=== PATIENT | male | born 1945 | race Hispanic/Latino ===

== ENCOUNTER 2020-10-23 18:58 | Emergency (ER) | payer OTHER ==
[2020-10-23 20:00] LABS: BASOPHILS % (AUTO) 0.5 % (0.0-5.0); EOSINOPHILS % (AUTO) 0.8 % (0.0-8.0); HEMATOCRIT 46.6 % (42-54); LYMPHOCYTES % (AUTO) 19.9 % (21.0-51.0); MEAN CORPUSCULAR HEMOGLOBIN 30.9 pg (27.0-33.0); MEAN CORPUSCULAR HGB CONC 35.8 g/dL (32.0-36.0); MEAN CORPUSCULAR VOLUME 86.1 fL (79-99); NEUTROPHILS % (AUTO) 71.3 % (40.0-77.0); PLATELET COUNT (AUTO) 200 K/uL (130-400); RED BLOOD CELL COUNT(AUTO) 5.41 MIL/uL (4.50-6.20); RED CELL DISTRIBUTION WIDTH 12.2 % (11.0-15.5); WHITE BLOOD COUNT (AUTO) 12.7 K/uL (4.8-10.8)
[2020-10-23 20:14] LABS: CREATININE 1.2 mg/dL (0.5-1.5); POTASSIUM 3.8 mmol/L (3.5-5.1)
[2020-10-23 20:16] LABS: PROTHROMBIN TIME 10.9 SEC (9.6-11.6)
[2020-10-23 20:20] LABS: BILIRUBIN,TOTAL 0.8 mg/dL (0.2-1.0); TOTAL PROTEIN, SERUM 7.2 g/dL (6.0-8.3)
[2020-10-23 20:35] LABS: APPEARANCE,URINE Clear (CLEAR); BILIRUBIN,URINE Negative (NEGATIVE); COLOR,URINE Yellow (YELLOW); GLUCOSE, URINE (UA) >=1000 mg/dL (NEGATIVE); KETONES,URINE Negative (NEGATIVE); LEUKOCYTE ESTERASE ,URINE Small (NEGATIVE); NITRATE,URINE Negative (NEGATIVE); OCCULT BLOOD,URINE Negative (NEGATIVE); PROTEIN,URINE POS 1+ mg/dL (NEGATIVE); UROBILINOGEN,URINE 0.2 mg/dL (0.2-1.0)
[2020-10-23 20:44] LABS: MUCUS,URINE Rare LPF (None Seen)
[2020-10-23] MEDS ORDERED: IOHEXOL-350 75 ML VIAL IV ONE (20:46)
[2020-10-23 20:47] LABS: BACTERIA,URINE Few /HPF (None Seen); RBC,URINE 0-1 /HPF (0-1); YEAST,URINE BUDDING Few /HPF (None Seen)
[2020-10-23] MEDS ORDERED: BISACODYL 10 MG SUPP.RECT RC ONE (22:15)
[2020-10-23] MEDS ORDERED: LIDOCAINE HCL 2% VISCOUS 15 ML UDCUP ONE (23:35)
[2020-10-23] MEDS ORDERED: LACTULOSE 20 GM/30 ML UDCUP ONE (23:35)
== END 2020-10-24 00:30 | disposition home or self-care (01) ==
LOC: EDH 18:58
DX: K56.41 Fecal impaction (principal); E86.0 Dehydration; I10 Essential (primary) hypertension; E11.9 Type 2 diabetes mellitus without complications; Z90.49 Acquired absence of other specified parts of digestive tract
CPT/HCPCS: 36415; 71045; 74177; 80053; 81001; 83605; 83690; 83880; 84484; 85025; 85610; 85730; 87040 ×2; 93005; 99285; Q9967

== ENCOUNTER 2020-12-13 11:53 | Emergency (ER) | payer MEDICARE, OTHER ==
[2020-12-13] MEDS ORDERED: NIFEDIPINE 10 MG CAP ONE (12:16)
[2020-12-13] MEDS ORDERED: LACTULOSE 20 GM/30 ML UDCUP ONE (12:20)
[2020-12-13 12:22] LABS: BASOPHILS % (AUTO) 0.4 % (0.0-5.0); EOSINOPHILS % (AUTO) 1.4 % (0.0-8.0); HEMATOCRIT 48.6 % (42-54); LYMPHOCYTES % (AUTO) 23.6 % (21.0-51.0); MEAN CORPUSCULAR HGB CONC 35.4 g/dL (32.0-36.0); MEAN CORPUSCULAR VOLUME 87.7 fL (79-99); MONOCYTES % (AUTO) 7.1 % (3.0-13.0); NEUTROPHILS % (AUTO) 66.8 % (40.0-77.0); PLATELET COUNT (AUTO) 185 K/uL (130-400); RED BLOOD CELL COUNT(AUTO) 5.54 MIL/uL (4.50-6.20); RED CELL DISTRIBUTION WIDTH 11.9 % (11.0-15.5); WHITE BLOOD COUNT (AUTO) 8.3 K/uL (4.8-10.8)
[2020-12-13 12:26] LABS: APPEARANCE,URINE Clear (CLEAR); BILIRUBIN,URINE Negative (NEGATIVE); COLOR,URINE Yellow (YELLOW); GLUCOSE, URINE (UA) >=1000 mg/dL (NEGATIVE); KETONES,URINE Negative (NEGATIVE); LEUKOCYTE ESTERASE ,URINE Negative (NEGATIVE); NITRATE,URINE Negative (NEGATIVE); OCCULT BLOOD,URINE Negative (NEGATIVE); PROTEIN,URINE Negative (NEGATIVE)
[2020-12-13 12:37] LABS: BILIRUBIN,TOTAL 0.6 mg/dL (0.2-1.0); CREATININE 1.2 mg/dL (0.5-1.5); POTASSIUM 4.5 mmol/L (3.5-5.1); TOTAL PROTEIN, SERUM 7.1 g/dL (6.0-8.3)
[2020-12-13 12:42] LABS: BACTERIA,URINE Rare /HPF (None Seen); RBC,URINE 0-1 /HPF (0-1); SQUAMOUS EPITHELIAL CELL,UR Rare /HPF (0-2); WBC,URINE 0-1 /HPF (0-1)
[2020-12-13] MEDS ORDERED: SODIUM CHLORIDE 0.9% 1000ML 1,000 ML IV ONE (12:45)
[2020-12-13] MEDS ORDERED: INSULIN HUMULIN R 100 UNIT/ML 3ML ONE ×2 (12:46→14:05)
[2020-12-13 13:01] LABS: B-TYPE NATRIURETIC PEPTIDE 69 pg/mL (0-100)
== END 2020-12-13 14:52 | disposition home or self-care (01) ==
LOC: EDH 11:53
DX: K59.00 Constipation, unspecified (principal); E11.65 Type 2 diabetes mellitus with hyperglycemia; I10 Essential (primary) hypertension; Z90.49 Acquired absence of other specified parts of digestive tract
CPT/HCPCS: 36415; 71045; 74176; 80053; 81001; 82010; 82550; 82948 ×2; 83690; 83880; 84484; 85025; 93005; 96361; 96374; 96376; 99285; J1815 ×2; J7030; 96375

== ENCOUNTER 2021-02-04 14:13 | Emergency (ER) | payer MEDICARE ==
[~2021-02-04] VITALS: Ht 170.2 cm; Wt 81.6 kg
[2021-02-04 14:14] VITALS: BP 193/112
[2021-02-04] MEDS ORDERED: MAGNESIUM CITRATE 296 ML SOLUTION PO ONE (15:00)
[2021-02-04] MEDS ORDERED: LACTULOSE 20 GM/30 ML UDCUP PO ONE (15:00)
[2021-02-04 16:03] LABS: HEMATOCRIT 48.9 % (42-54); MEAN CORPUSCULAR HEMOGLOBIN 30.6 pg (27.0-33.0); MEAN CORPUSCULAR HGB CONC 34.8 g/dL (32.0-36.0); MEAN CORPUSCULAR VOLUME 88.1 fL (79-99); RED BLOOD CELL COUNT(AUTO) 5.55 MIL/uL (4.50-6.20); RED CELL DISTRIBUTION WIDTH 12.4 % (11.0-15.5); WHITE BLOOD COUNT (AUTO) 8.9 K/uL (4.8-10.8)
[2021-02-04] MEDS ORDERED: LACT10PA5 PO (16:09)
[2021-02-04 16:14] LABS: CREATININE 1.1 mg/dL (0.5-1.5); POTASSIUM 4.3 mmol/L (3.5-5.1)
[2021-02-04 16:18] LABS: ALBUMIN 4.1 g/dL (3.5-5.0); TOTAL PROTEIN, SERUM 7.5 g/dL (6.0-8.3)
== END 2021-02-04 16:29 | disposition home or self-care (01) ==
LOC: EDH 14:13
DX: K59.00 Constipation, unspecified (principal); I10 Essential (primary) hypertension; E11.9 Type 2 diabetes mellitus without complications; Z90.49 Acquired absence of other specified parts of digestive tract
CPT/HCPCS: 36415; 74018; 80053; 85027

== ENCOUNTER 2021-06-09 11:59 | Inpatient (IN) | payer MEDICARE ==
[~2021-06-09] VITALS: Ht 170.2 cm; Wt 77.2 kg
[~2021-06-09 11:59] MED LIST: LACT10PA5 PO
[2021-06-09 12:29] LABS: BASOPHILS % (AUTO) 0.2 % (0.0-5.0); EOSINOPHILS % (AUTO) 0.3 % (0.0-8.0); HEMATOCRIT 46.4 % (42-54); LYMPHOCYTES % (AUTO) 12.1 % (21.0-51.0); MEAN CORPUSCULAR HEMOGLOBIN 31.2 pg (27.0-33.0); MEAN CORPUSCULAR HGB CONC 34.7 g/dL (32.0-36.0); MEAN CORPUSCULAR VOLUME 89.9 fL (79-99); NEUTROPHILS % (AUTO) 78.1 % (40.0-77.0); PLATELET COUNT (AUTO) 221 K/uL (130-400); RED BLOOD CELL COUNT(AUTO) 5.16 MIL/uL (4.50-6.20); RED CELL DISTRIBUTION WIDTH 12.7 % (11.0-15.5); WHITE BLOOD COUNT (AUTO) 11.6 K/uL (4.8-10.8)
[2021-06-09] MEDS ORDERED: COMPOUND IV REFRIGERATED 1 EACH IVSOLN MISC PRN (12:30)
[2021-06-09] MEDS ORDERED: 0.9% NACL 250ML IV SCH (12:30)
[2021-06-09] MEDS ORDERED: ZOSYN 3.375GM +NS 50ML IV SCH (12:30)
[2021-06-09] MEDS ORDERED: ZOSYN 3.375GM+NS 50ML 50 ML IV SCH (12:30)
[2021-06-09] MEDS ORDERED: VANCOMYCIN 1G VIAL IVPB SCH (12:30)
[2021-06-09] MEDS ORDERED: HYDROCODONE/ACETAMINOPHEN 10/325 MG TAB PO ONE (12:30)
[2021-06-09] MEDS ORDERED: 0.9%NACL 50ML 50 ML IV ONE (12:34)
[2021-06-09 12:37] LABS: CREATININE 1.4 mg/dL (0.5-1.5); POTASSIUM 3.9 mmol/L (3.5-5.1)
[2021-06-09 12:42] LABS: ALBUMIN 3.4 g/dL (3.5-5.0); BILIRUBIN,TOTAL 0.9 mg/dL (0.2-1.0); TOTAL PROTEIN, SERUM 7.8 g/dL (6.0-8.3)
[2021-06-09] MEDS ORDERED: ONDANSETRON 4MG INJ ONE (12:46)
[2021-06-09] MEDS ORDERED: VANCOMYCIN 1G/250ML KIT 250 ML IV ONE (12:47)
[2021-06-09] MEDS ORDERED: ONDANSETRON 4MG INJ IVP ONE (13:00)
[2021-06-09] MEDS ORDERED: ONDANSETRON 4MG INJ IV PRN (13:30)
[2021-06-09] MEDS ORDERED: ACETAMINOPHEN 325 MG TAB PO PRN ×2 (13:30)
[2021-06-09] MEDS ORDERED: MORPHINE 2 MG SYG IV PRN (13:30)
[2021-06-09] MEDS ORDERED: LACTULOSE 20 GM/30 ML UDCUP PO PRN (13:30)
[2021-06-09] MEDS: VANCOMYCIN 1.25GM/NS 250ML IVPB SCH ×4 (13:35→16:14)
[2021-06-09 13:44] LABS: INR 1.07 (0.85-1.15); PROTHROMBIN TIME 11.6 SEC (9.6-11.6)
[2021-06-09 13:46] LABS: PARTIAL THROMBOPLASTIN TIME 35.1 SEC (26.3-35.5)
[2021-06-09 13:49] LABS: HEMOGLOBIN A1C 6.7 % (4.0-6.0)
[2021-06-09] MEDS: CEFEPIME HCL 2 GM VIAL IVP SCH (15:07)
[2021-06-09] MEDS: 0.9%NACL 1000ML 1,000 ML IV SCH (15:07)
[2021-06-09] MEDS: FAMOTIDINE 20MG VIAL IV SCH (15:07)
[2021-06-09] MEDS: METRONIDAZOLE 500MG/100ML BAG 100 ML IVPB SCH ×2 (16:34→22:00)
[2021-06-09] MEDS ORDERED: ASPIRIN 81 MG EC TAB PO ONE (17:00)
[2021-06-09] MEDS: INSULIN HUMULIN R 100 UNIT/ML 3ML SQ SCH (17:38)
[2021-06-09] MEDS ORDERED: RAMI5CAP66 PO (17:43)
[2021-06-09] MEDS ORDERED: EMPA10TA PO (17:53)
[2021-06-09] MEDS ORDERED: LISI20TA24 PO (17:53)
[2021-06-09] MEDS ORDERED: DULA0.75 SQ (17:53)
[2021-06-09] MEDS ORDERED: DORZ10DR10 OP (17:53)
[2021-06-09] MEDS ORDERED: LATA7.5D OP (17:53)
[2021-06-09] MEDS ORDERED: [UNRECOGNIZED DRUG - OTHER] OP (17:53)
[2021-06-09] MEDS: ATORVASTATIN 20 MG TABLET PO SCH (21:00)
[2021-06-09 21:25] VITALS: BP 156/84
[2021-06-09] MEDS ORDERED: PHARMACY COMMUNICATION MISC SCH (22:00)
[2021-06-09 22:14] LABS: APPEARANCE,URINE Clear (CLEAR); BILIRUBIN,URINE Negative (NEGATIVE); COLOR,URINE Yellow (YELLOW); GLUCOSE, URINE (UA) >=1000 mg/dL (NEGATIVE); KETONES,URINE 15 mg/dL (NEGATIVE); LEUKOCYTE ESTERASE ,URINE Negative (NEGATIVE); NITRATE,URINE Negative (NEGATIVE); OCCULT BLOOD,URINE Negative (NEGATIVE); PROTEIN,URINE Negative (NEGATIVE)
[2021-06-10 00:02] VITALS: BP 147/90
[2021-06-10] MEDS: CEFEPIME HCL 2 GM VIAL IVP SCH ×2 (02:26→12:49)
[2021-06-10] MEDS: 0.9%NACL 1000ML 1,000 ML IV SCH ×3 (02:33→20:52)
[2021-06-10 04:10] VITALS: BP 159/92
[2021-06-10 04:26] LABS: BASOPHILS % (AUTO) 0.3 % (0.0-5.0); HEMATOCRIT 38.7 % (42-54); LYMPHOCYTES % (AUTO) 16.4 % (21.0-51.0); MEAN CORPUSCULAR HEMOGLOBIN 31.2 pg (27.0-33.0); MEAN CORPUSCULAR HGB CONC 35.1 g/dL (32.0-36.0); MEAN CORPUSCULAR VOLUME 88.8 fL (79-99); NEUTROPHILS % (AUTO) 70.9 % (40.0-77.0); PLATELET COUNT (AUTO) 193 K/uL (130-400); RED BLOOD CELL COUNT(AUTO) 4.36 MIL/uL (4.50-6.20); RED CELL DISTRIBUTION WIDTH 12.6 % (11.0-15.5)
[2021-06-10 04:40] LABS: CREATININE 1.2 mg/dL (0.5-1.5); POTASSIUM 3.5 mmol/L (3.5-5.1)
[2021-06-10] MEDS: METRONIDAZOLE 500MG/100ML BAG 100 ML IVPB SCH ×3 (06:00→21:11)
[2021-06-10] MEDS: INSULIN HUMULIN R 100 UNIT/ML 3ML SQ SCH ×4 (06:00→16:25)
[2021-06-10] MEDS ORDERED: IOHEXOL-350 50ML VIAL IV ONE (07:54)
[2021-06-10] MEDS ORDERED: IOHEXOL 350 MG/ML 100ML INFUS..BTL IV ONE (07:55)
[2021-06-10 08:00] VITALS: BP 176/94
[2021-06-10] MEDS: [UNRECOGNIZED DRUG - OTHER] OP SCH ×3 (09:00→21:00)
[2021-06-10] MEDS: **HM** JARDIANCE 10MG PO SCH (09:00)
[2021-06-10] MEDS ORDERED: NON-FORMULARY MEDICATION 1 EACH (Ramipril 5 MG) PO SCH (09:00)
[2021-06-10] MEDS: FAMOTIDINE 20MG VIAL IV SCH (10:10)
[2021-06-10] MEDS: LISINOPRIL 20 MG TABLET PO SCH (10:12)
[2021-06-10] MEDS: ASPIRIN 81 MG EC TAB PO SCH (10:43)
[2021-06-10 12:00] VITALS: BP 153/86
[2021-06-10] MEDS: DORZOLAMIDE HCL/TIMOLOL MALEAT DROPS 10 ML BOTTLE OP SCH ×2 (14:00→21:00)
[2021-06-10] MEDS ORDERED: METRONIDAZOLE 500 MG TABLET ONE ×2 (14:56→20:36)
[2021-06-10] MEDS: VANCOMYCIN 1.25GM/NS 250ML IVPB SCH ×2 (15:04)
[2021-06-10 16:00] VITALS: BP 144/84
[2021-06-10 20:00] VITALS: BP 150/92
[2021-06-10] MEDS: ATORVASTATIN 20 MG TABLET PO SCH (21:06)
[2021-06-10] MEDS: LATANOPROST 2.5 ML DROPS OP SCH (21:08)
[2021-06-11] VITALS: BP 139/77
[2021-06-11] MEDS: CEFEPIME HCL 2 GM VIAL IVP SCH ×2 (01:06→12:42)
[2021-06-11] MEDS: VANCOMYCIN 1.25GM/NS 250ML IVPB SCH ×4 (01:07→12:50)
[2021-06-11 04:00] VITALS: BP 160/98
[2021-06-11 04:42] LABS: HEMATOCRIT 39.3 % (42-54); MEAN CORPUSCULAR HEMOGLOBIN 30.5 pg (27.0-33.0); MEAN CORPUSCULAR HGB CONC 35.1 g/dL (32.0-36.0); MEAN CORPUSCULAR VOLUME 86.9 fL (79-99); RED BLOOD CELL COUNT(AUTO) 4.52 MIL/uL (4.50-6.20); RED CELL DISTRIBUTION WIDTH 12.3 % (11.0-15.5); WHITE BLOOD COUNT (AUTO) 7.7 K/uL (4.8-10.8)
[2021-06-11 05:09] LABS: ALBUMIN 2.4 g/dL (3.5-5.0); BILIRUBIN,TOTAL 0.5 mg/dL (0.2-1.0); POTASSIUM 3.7 mmol/L (3.5-5.1); TOTAL PROTEIN, SERUM 5.9 g/dL (6.0-8.3)
[2021-06-11] MEDS: METRONIDAZOLE 500MG/100ML BAG 100 ML IVPB SCH ×3 (05:27→21:05)
[2021-06-11] MEDS: 0.9%NACL 1000ML 1,000 ML IV SCH ×2 (05:36→16:52)
[2021-06-11] MEDS: INSULIN HUMULIN R 100 UNIT/ML 3ML SQ SCH ×4 (06:00→16:49)
[2021-06-11 08:00] VITALS: BP 117/76
[2021-06-11] MEDS: [UNRECOGNIZED DRUG - OTHER] OP SCH ×3 (08:42→21:00)
[2021-06-11] MEDS: **HM** JARDIANCE 10MG PO SCH (08:43)
[2021-06-11 12:00] VITALS: BP 149/86
[2021-06-11] MEDS: LISINOPRIL 20 MG TABLET PO SCH (12:42)
[2021-06-11] MEDS: FAMOTIDINE 20MG VIAL IV SCH (12:46)
[2021-06-11] MEDS: DORZOLAMIDE HCL/TIMOLOL MALEAT DROPS 10 ML BOTTLE OP SCH ×2 (12:49→21:00)
[2021-06-11 16:00] VITALS: BP 142/84
[2021-06-11] MEDS: AMLODIPINE 5 MG TAB PO SCH (16:56)
[2021-06-11] MEDS: ASPIRIN 81 MG EC TAB PO SCH (16:56)
[2021-06-11 20:26] VITALS: BP 156/96
[2021-06-11] MEDS: LATANOPROST 2.5 ML DROPS OP SCH (21:03)
[2021-06-11] MEDS: ATORVASTATIN 20 MG TABLET PO SCH (21:04)
[2021-06-12] VITALS (7 sets, daily range): BP systolic 121–156; BP diastolic 67–92
[2021-06-12 00:53] LABS: MEAN CORPUSCULAR HEMOGLOBIN 31.6 pg (27.0-33.0); MEAN CORPUSCULAR VOLUME 87.6 fL (79-99); RED BLOOD CELL COUNT(AUTO) 4.91 MIL/uL (4.50-6.20); RED CELL DISTRIBUTION WIDTH 12.3 % (11.0-15.5); WHITE BLOOD COUNT (AUTO) 7.1 K/uL (4.8-10.8)
[2021-06-12 01:00] LABS: POTASSIUM 3.5 mmol/L (3.5-5.1)
[2021-06-12] MEDS: VANCOMYCIN 1.25GM/NS 250ML IVPB SCH ×4 (01:33→12:47)
[2021-06-12] MEDS: CEFEPIME HCL 2 GM VIAL IVP SCH ×2 (01:33→12:45)
[2021-06-12] MEDS: 0.9%NACL 1000ML 1,000 ML IV SCH ×2 (02:52→12:21)
[2021-06-12] MEDS: METRONIDAZOLE 500MG/100ML BAG 100 ML IVPB SCH ×3 (05:41→19:23)
[2021-06-12] MEDS: INSULIN HUMULIN R 100 UNIT/ML 3ML SQ SCH ×4 (05:41→16:08)
[2021-06-12] MEDS: [UNRECOGNIZED DRUG - OTHER] OP SCH ×3 (09:00→20:31)
[2021-06-12] MEDS: FAMOTIDINE 20MG VIAL IV SCH (09:01)
[2021-06-12] MEDS: ASPIRIN 81 MG EC TAB PO SCH (09:02)
[2021-06-12] MEDS: LISINOPRIL 20 MG TABLET PO SCH (09:02)
[2021-06-12] MEDS: AMLODIPINE 5 MG TAB PO SCH (09:02)
[2021-06-12] MEDS: HYDROCHLOROTHIAZIDE 25 MG TABLET PO SCH (09:02)
[2021-06-12] MEDS: **HM** JARDIANCE 10MG PO SCH (09:13)
[2021-06-12] MEDS: DORZOLAMIDE HCL/TIMOLOL MALEAT DROPS 10 ML BOTTLE OP SCH ×3 (09:13→20:31)
[2021-06-12] MEDS: ATORVASTATIN 20 MG TABLET PO SCH (20:24)
[2021-06-12] MEDS: LATANOPROST 2.5 ML DROPS OP SCH (20:30)
[2021-06-13] VITALS (23 sets, daily range): BP systolic 114–178; BP diastolic 74–102
[2021-06-13] MEDS: CEFEPIME HCL 2 GM VIAL IVP SCH ×2 (00:27→13:09)
[2021-06-13] MEDS: VANCOMYCIN 1.25GM/NS 250ML IVPB SCH ×4 (00:27→13:15)
[2021-06-13 05:46] LABS: BASOPHILS % (AUTO) 0.8 % (0.0-5.0); EOSINOPHILS % (AUTO) 1.8 % (0.0-8.0); LYMPHOCYTES % (AUTO) 20.7 % (21.0-51.0); MEAN CORPUSCULAR HGB CONC 35.7 g/dL (32.0-36.0); MONOCYTES % (AUTO) 10.1 % (3.0-13.0); PLATELET COUNT (AUTO) 258 K/uL (130-400); RED BLOOD CELL COUNT(AUTO) 5.06 MIL/uL (4.50-6.20); RED CELL DISTRIBUTION WIDTH 12.2 % (11.0-15.5); WHITE BLOOD COUNT (AUTO) 7.2 K/uL (4.8-10.8)
[2021-06-13] MEDS: METRONIDAZOLE 500MG/100ML BAG 100 ML IVPB SCH ×3 (06:00→20:08)
[2021-06-13] MEDS: INSULIN HUMULIN R 100 UNIT/ML 3ML SQ SCH ×5 (06:00→23:56)
[2021-06-13 06:24] LABS: ALBUMIN 2.9 g/dL (3.5-5.0); BILIRUBIN,TOTAL 0.5 mg/dL (0.2-1.0); CRP QUANTITATIVE 55.4 mg/L (0.00-9.0); POTASSIUM 3.8 mmol/L (3.5-5.1); TOTAL PROTEIN, SERUM 6.8 g/dL (6.0-8.3)
[2021-06-13 07:28] LABS: ERYTHROCYTE SEDIMENTATION RATE 40 MM/HR (0-20)
[2021-06-13] MEDS: LISINOPRIL 20 MG TABLET PO SCH (08:32)
[2021-06-13] MEDS: AMLODIPINE 5 MG TAB PO SCH (08:32)
[2021-06-13] MEDS: FAMOTIDINE 20MG VIAL IV SCH (08:32)
[2021-06-13] MEDS: HYDROCHLOROTHIAZIDE 25 MG TABLET PO SCH (08:32)
[2021-06-13] MEDS: ASPIRIN 81 MG EC TAB PO SCH (08:33)
[2021-06-13] MEDS: **HM** JARDIANCE 10MG PO SCH (08:37)
[2021-06-13] MEDS: [UNRECOGNIZED DRUG - OTHER] OP SCH ×3 (08:42→20:08)
[2021-06-13] MEDS: DORZOLAMIDE HCL/TIMOLOL MALEAT DROPS 10 ML BOTTLE OP SCH ×3 (08:43→20:09)
[2021-06-13] MEDS ORDERED: LABETALOL 20MG SYG IV PRN (10:00)
[2021-06-13] MEDS ORDERED: 0.9%NACL 1000ML 1,000 ML IV ONE (12:59)
[2021-06-13] MEDS ORDERED: BUPIVACAINE/PF 0.5% 30ML VIAL ONE (13:08)
[2021-06-13] MEDS ORDERED: LIDOCAINE HCL 1% 20 ML VIAL ONE (13:08)
[2021-06-13] MEDS ORDERED: FENTANYL CITRATE PF 50 MCG/1 ML 2ML VIAL ONE (13:43)
[2021-06-13] MEDS ORDERED: DEXAMETHASONE SOD PHOSPHATE 10MG/ML 1ML VIAL ONE (13:43)
[2021-06-13] MEDS ORDERED: ONDANSETRON 4MG INJ ONE (13:43)
[2021-06-13] MEDS ORDERED: MIDAZOLAM HCL 1 MG/ML 2ML VIAL ONE (13:43)
[2021-06-13] MEDS ORDERED: LIDOCAINE PF 100MG/5ML (2%) SYRINGE 5ML ONE (13:43)
[2021-06-13] MEDS ORDERED: PROPOFOL 10 MG/ML 20ML VIAL IV ONE (13:43)
[2021-06-13] MEDS ORDERED: MEPERIDINE-PF 25 MG/ML SYG ONE (13:44)
[2021-06-13] MEDS ORDERED: EPHEDRINE SULFATE 50 MG/ML AMPULE ONE (13:53)
[2021-06-13] MEDS: ATORVASTATIN 20 MG TABLET PO SCH (20:08)
[2021-06-13] MEDS: LATANOPROST 2.5 ML DROPS OP SCH (20:09)
[2021-06-14] MEDS: CEFEPIME HCL 2 GM VIAL IVP SCH ×2 (01:33→12:44)
[2021-06-14] MEDS: VANCOMYCIN 1.25GM/NS 250ML IVPB SCH ×4 (01:34→13:00)
[2021-06-14 03:13] VITALS: BP 144/80
[2021-06-14] MEDS: METRONIDAZOLE 500MG/100ML BAG 100 ML IVPB SCH (04:45)
[2021-06-14 04:52] LABS: BASOPHILS % (AUTO) 0.1 % (0.0-5.0); HEMATOCRIT 44.3 % (42-54); LYMPHOCYTES % (AUTO) 10.5 % (21.0-51.0); MEAN CORPUSCULAR HGB CONC 35.4 g/dL (32.0-36.0); MEAN CORPUSCULAR VOLUME 87.5 fL (79-99); MONOCYTES % (AUTO) 3.3 % (3.0-13.0); NEUTROPHILS % (AUTO) 84.3 % (40.0-77.0); PLATELET COUNT (AUTO) 280 K/uL (130-400); RED BLOOD CELL COUNT(AUTO) 5.06 MIL/uL (4.50-6.20); RED CELL DISTRIBUTION WIDTH 12.1 % (11.0-15.5)
[2021-06-14 05:11] LABS: ALBUMIN 2.9 g/dL (3.5-5.0); BILIRUBIN,TOTAL 0.5 mg/dL (0.2-1.0); CREATININE 1.2 mg/dL (0.5-1.5); TOTAL PROTEIN, SERUM 6.8 g/dL (6.0-8.3)
[2021-06-14] MEDS: INSULIN HUMULIN R 100 UNIT/ML 3ML SQ SCH ×3 (05:39→18:00)
[2021-06-14 08:00] VITALS: BP 129/87
[2021-06-14] MEDS: [UNRECOGNIZED DRUG - OTHER] OP SCH ×3 (09:00→20:57)
[2021-06-14] MEDS: **HM** JARDIANCE 10MG PO SCH (09:00)
[2021-06-14] MEDS: DORZOLAMIDE HCL/TIMOLOL MALEAT DROPS 10 ML BOTTLE OP SCH ×3 (09:00→20:57)
[2021-06-14] MEDS: FAMOTIDINE 20MG VIAL IV SCH (09:18)
[2021-06-14] MEDS: HYDROCHLOROTHIAZIDE 25 MG TABLET PO SCH (09:18)
[2021-06-14] MEDS: AMLODIPINE 5 MG TAB PO SCH (09:19)
[2021-06-14] MEDS: CLOPIDOGREL 75MG TAB PO SCH (09:19)
[2021-06-14] MEDS: ASPIRIN 81 MG EC TAB PO SCH (09:19)
[2021-06-14] MEDS: LISINOPRIL 20 MG TABLET PO SCH (09:19)
[2021-06-14] MEDS ORDERED: ATOR10 PO (10:22)
[2021-06-14] MEDS ORDERED: CLOP75TA14 PO (10:22)
[2021-06-14 12:00] VITALS: BP 113/81
[2021-06-14] MEDS ORDERED: LACTULOSE 20 GM/30 ML UDCUP PO PRN (12:00)
[2021-06-14 16:00] VITALS: BP 138/83
[2021-06-14] MEDS: METRONIDAZOLE 500 MG TABLET PO SCH (17:45)
[2021-06-14] MEDS: LACTULOSE 20 GM/30 ML UDCUP PO PRN (17:45)
[2021-06-14 20:12] VITALS: BP 108/66
[2021-06-14] MEDS: ATORVASTATIN 20 MG TABLET PO SCH (20:58)
[2021-06-14] MEDS: LATANOPROST 2.5 ML DROPS OP SCH (20:58)
[2021-06-14] MEDS: GABAPENTIN 300 MG CAPSULE PO SCH (20:59)
[2021-06-15 00:16] VITALS: BP 110/69
[2021-06-15] MEDS: CEFEPIME HCL 2 GM VIAL IVP SCH ×2 (00:25→13:37)
[2021-06-15] MEDS: METRONIDAZOLE 500 MG TABLET PO SCH ×3 (00:25→18:33)
[2021-06-15] MEDS: VANCOMYCIN 1.25GM/NS 250ML IVPB SCH ×6 (01:31→23:28)
[2021-06-15 04:16] VITALS: BP 125/78
[2021-06-15] MEDS: INSULIN HUMULIN R 100 UNIT/ML 3ML SQ SCH ×5 (05:24→20:18)
[2021-06-15 05:25] LABS: BASOPHILS % (AUTO) 0.5 % (0.0-5.0); HEMATOCRIT 41.5 % (42-54); LYMPHOCYTES % (AUTO) 24.8 % (21.0-51.0); MEAN CORPUSCULAR HEMOGLOBIN 30.7 pg (27.0-33.0); MEAN CORPUSCULAR HGB CONC 34.9 g/dL (32.0-36.0); MEAN CORPUSCULAR VOLUME 87.9 fL (79-99); MONOCYTES % (AUTO) 8.5 % (3.0-13.0); NEUTROPHILS % (AUTO) 64.5 % (40.0-77.0); PLATELET COUNT (AUTO) 261 K/uL (130-400); RED BLOOD CELL COUNT(AUTO) 4.72 MIL/uL (4.50-6.20); RED CELL DISTRIBUTION WIDTH 12.1 % (11.0-15.5); WHITE BLOOD COUNT (AUTO) 8.2 K/uL (4.8-10.8)
[2021-06-15 06:08] LABS: ALBUMIN 2.8 g/dL (3.5-5.0); BILIRUBIN,TOTAL 0.4 mg/dL (0.2-1.0); CREATININE 1.2 mg/dL (0.5-1.5); CRP QUANTITATIVE 18.7 mg/L (0.00-9.0); POTASSIUM 3.8 mmol/L (3.5-5.1); TOTAL PROTEIN, SERUM 6.1 g/dL (6.0-8.3)
[2021-06-15] MEDS ORDERED: VANCOMYCIN PROTOCOL PER PHARMACY IV SCH (07:30)
[2021-06-15] MEDS: **HM** JARDIANCE 10MG PO SCH (09:00)
[2021-06-15] MEDS: DORZOLAMIDE HCL/TIMOLOL MALEAT DROPS 10 ML BOTTLE OP SCH ×3 (09:00→20:39)
[2021-06-15] MEDS: [UNRECOGNIZED DRUG - OTHER] OP SCH ×3 (09:00→20:39)
[2021-06-15 09:26] VITALS: BP 126/86
[2021-06-15] MEDS: LISINOPRIL 20 MG TABLET PO SCH (09:47)
[2021-06-15] MEDS: CLOPIDOGREL 75MG TAB PO SCH (09:47)
[2021-06-15] MEDS: LACTULOSE 20 GM/30 ML UDCUP PO SCH ×2 (09:47→12:25)
[2021-06-15] MEDS: GABAPENTIN 300 MG CAPSULE PO SCH ×2 (09:48→20:27)
[2021-06-15] MEDS: ASPIRIN 81 MG EC TAB PO SCH (09:48)
[2021-06-15] MEDS: FAMOTIDINE 20MG VIAL IV SCH (09:48)
[2021-06-15] MEDS: VANCOMYCIN 750MG VIAL IVPB SCH ×2 (09:52→20:28)
[2021-06-15 12:00] VITALS: BP 132/89
[2021-06-15] MEDS ORDERED: DEXTROSE 50%-WATER 50 ML DISP.SYRIN IV PRN (18:30)
[2021-06-15] MEDS ORDERED: GLUCAGON 1MG KIT 1 MG ML IM PRN (18:30)
[2021-06-15 18:52] VITALS: BP 106/68
[2021-06-15 20:12] VITALS: BP 105/66
[2021-06-15] MEDS: ATORVASTATIN 20 MG TABLET PO SCH (20:24)
[2021-06-15] MEDS: LATANOPROST 2.5 ML DROPS OP SCH (20:38)
[2021-06-16] MEDS: METRONIDAZOLE 500 MG TABLET PO SCH ×4 (00:11→23:50)
[2021-06-16] MEDS: CEFEPIME HCL 2 GM VIAL IVP SCH ×3 (00:11→23:50)
[2021-06-16 00:16] VITALS: BP 139/84
[2021-06-16 04:16] VITALS: BP 129/79
[2021-06-16] MEDS: INSULIN HUMULIN R 100 UNIT/ML 3ML SQ SCH ×4 (05:24→20:51)
[2021-06-16 07:20] VITALS: BP 154/90
[2021-06-16] MEDS: CLOPIDOGREL 75MG TAB PO SCH (08:53)
[2021-06-16] MEDS: GABAPENTIN 300 MG CAPSULE PO SCH ×2 (08:53→20:53)
[2021-06-16] MEDS: ASPIRIN 81 MG EC TAB PO SCH (08:53)
[2021-06-16] MEDS: LISINOPRIL 20 MG TABLET PO SCH (08:53)
[2021-06-16] MEDS: VANCOMYCIN 750MG VIAL IVPB SCH ×2 (08:54→20:54)
[2021-06-16] MEDS: FAMOTIDINE 20MG VIAL IV SCH (08:54)
[2021-06-16] MEDS: DORZOLAMIDE HCL/TIMOLOL MALEAT DROPS 10 ML BOTTLE OP SCH ×3 (09:41→21:01)
[2021-06-16] MEDS: [UNRECOGNIZED DRUG - OTHER] OP SCH ×3 (09:41→21:00)
[2021-06-16] MEDS: **HM** JARDIANCE 10MG PO SCH (09:44)
[2021-06-16 11:20] VITALS: BP 146/91
[2021-06-16 15:25] VITALS: BP 151/95
[2021-06-16 20:20] VITALS: BP 132/74
[2021-06-16] MEDS: ATORVASTATIN 20 MG TABLET PO SCH (20:53)
[2021-06-16] MEDS: 0.9% NACL 250ML IV SCH (20:54)
[2021-06-16] MEDS: LATANOPROST 2.5 ML DROPS OP SCH (21:01)
[2021-06-17] VITALS (9 sets, daily range): BP systolic 118–173; BP diastolic 75–102
[2021-06-17] MEDS: INSULIN HUMULIN R 100 UNIT/ML 3ML SQ SCH ×4 (05:54→20:57)
[2021-06-17 08:13] LABS: BASOPHILS % (AUTO) 0.7 % (0.0-5.0); EOSINOPHILS % (AUTO) 1.6 % (0.0-8.0); HEMATOCRIT 45.9 % (42-54); LYMPHOCYTES % (AUTO) 21.1 % (21.0-51.0); MEAN CORPUSCULAR HGB CONC 34.6 g/dL (32.0-36.0); MEAN CORPUSCULAR VOLUME 89.5 fL (79-99); MONOCYTES % (AUTO) 6.6 % (3.0-13.0); NEUTROPHILS % (AUTO) 68.8 % (40.0-77.0); PLATELET COUNT (AUTO) 247 K/uL (130-400); RED BLOOD CELL COUNT(AUTO) 5.13 MIL/uL (4.50-6.20); RED CELL DISTRIBUTION WIDTH 12.1 % (11.0-15.5); WHITE BLOOD COUNT (AUTO) 6.9 K/uL (4.8-10.8)
[2021-06-17 08:34] LABS: CREATININE 1.1 mg/dL (0.5-1.5)
[2021-06-17] MEDS: LACTULOSE 20 GM/30 ML UDCUP PO SCH (09:07)
[2021-06-17] MEDS: METRONIDAZOLE 500 MG TABLET PO SCH ×2 (09:07→16:10)
[2021-06-17] MEDS: CLOPIDOGREL 75MG TAB PO SCH (09:08)
[2021-06-17] MEDS: GABAPENTIN 300 MG CAPSULE PO SCH ×2 (09:08→21:04)
[2021-06-17] MEDS: ASPIRIN 81 MG EC TAB PO SCH (09:08)
[2021-06-17] MEDS: LISINOPRIL 20 MG TABLET PO SCH (09:09)
[2021-06-17] MEDS: VANCOMYCIN 750MG VIAL IVPB SCH (09:09)
[2021-06-17] MEDS: FAMOTIDINE 20MG VIAL IV SCH (09:09)
[2021-06-17] MEDS: 0.9% NACL 250ML IV SCH (09:10)
[2021-06-17] MEDS: DORZOLAMIDE HCL/TIMOLOL MALEAT DROPS 10 ML BOTTLE OP SCH ×3 (09:10→21:05)
[2021-06-17] MEDS: **HM** JARDIANCE 10MG PO SCH (09:11)
[2021-06-17] MEDS: [UNRECOGNIZED DRUG - OTHER] OP SCH ×3 (09:11→21:05)
[2021-06-17] MEDS: AMLODIPINE 5 MG TAB PO SCH (09:15)
[2021-06-17] MEDS ORDERED: AMLODIPINE 5 MG TAB PO ONE (10:00)
[2021-06-17] MEDS: CEFEPIME HCL 2 GM VIAL IVP SCH (12:17)
[2021-06-17] MEDS: ATORVASTATIN 20 MG TABLET PO SCH (21:04)
[2021-06-17] MEDS: DOXYCYCLINE HYCLATE 100 MG TABLET PO SCH (21:04)
[2021-06-17] MEDS: LATANOPROST 2.5 ML DROPS OP SCH (21:05)
[2021-06-18] MEDS: METRONIDAZOLE 500 MG TABLET PO SCH ×4 (00:29→23:27)
[2021-06-18 03:52] VITALS: BP 152/93
[2021-06-18] MEDS: INSULIN HUMULIN R 100 UNIT/ML 3ML SQ SCH ×4 (06:37→21:00)
[2021-06-18 07:49] LABS: BASOPHILS % (AUTO) 0.8 % (0.0-5.0); EOSINOPHILS % (AUTO) 1.5 % (0.0-8.0); HEMATOCRIT 45.2 % (42-54); LYMPHOCYTES % (AUTO) 21.8 % (21.0-51.0); MEAN CORPUSCULAR HEMOGLOBIN 30.8 pg (27.0-33.0); MEAN CORPUSCULAR HGB CONC 34.3 g/dL (32.0-36.0); MEAN CORPUSCULAR VOLUME 89.7 fL (79-99); MONOCYTES % (AUTO) 6.1 % (3.0-13.0); NEUTROPHILS % (AUTO) 68.7 % (40.0-77.0); PLATELET COUNT (AUTO) 234 K/uL (130-400); RED BLOOD CELL COUNT(AUTO) 5.04 MIL/uL (4.50-6.20); RED CELL DISTRIBUTION WIDTH 12.4 % (11.0-15.5); WHITE BLOOD COUNT (AUTO) 7.6 K/uL (4.8-10.8)
[2021-06-18 07:54] VITALS: BP 157/89
[2021-06-18 08:11] LABS: CREATININE 1.1 mg/dL (0.5-1.5)
[2021-06-18] MEDS: **HM** JARDIANCE 10MG PO SCH (09:00)
[2021-06-18] MEDS: [UNRECOGNIZED DRUG - OTHER] OP SCH ×3 (09:00→21:00)
[2021-06-18] MEDS: AMLODIPINE 5 MG TAB PO SCH (09:02)
[2021-06-18] MEDS: DOXYCYCLINE HYCLATE 100 MG TABLET PO SCH ×2 (09:03→20:58)
[2021-06-18] MEDS: GABAPENTIN 300 MG CAPSULE PO SCH ×2 (09:03→20:58)
[2021-06-18] MEDS: LISINOPRIL 20 MG TABLET PO SCH (09:04)
[2021-06-18] MEDS: ASPIRIN 81 MG EC TAB PO SCH (09:04)
[2021-06-18] MEDS: CLOPIDOGREL 75MG TAB PO SCH (09:04)
[2021-06-18] MEDS: DORZOLAMIDE HCL/TIMOLOL MALEAT DROPS 10 ML BOTTLE OP SCH ×3 (09:14→21:00)
[2021-06-18] MEDS: POLYETHYLENE GLYCOL 3350 17 GM POWD.PACK PO SCH (09:18)
[2021-06-18 11:20] VITALS: BP 139/87
[2021-06-18 15:10] VITALS: BP 114/77
[2021-06-18 19:39] VITALS: BP 108/61
[2021-06-18] MEDS: FAMOTIDINE 20MG VIAL IV SCH (20:57)
[2021-06-18] MEDS: ATORVASTATIN 20 MG TABLET PO SCH (20:58)
[2021-06-18] MEDS: LATANOPROST 2.5 ML DROPS OP SCH (21:09)
[2021-06-18 23:24] VITALS: BP 120/66
[2021-06-19 03:39] VITALS: BP 139/82
[2021-06-19] MEDS: INSULIN HUMULIN R 100 UNIT/ML 3ML SQ SCH ×4 (06:33→20:48)
[2021-06-19 08:00] VITALS: BP 151/89
[2021-06-19] MEDS: **HM** JARDIANCE 10MG PO SCH (08:00)
[2021-06-19] MEDS: [UNRECOGNIZED DRUG - OTHER] OP SCH ×3 (08:00→20:44)
[2021-06-19] MEDS: DORZOLAMIDE HCL/TIMOLOL MALEAT DROPS 10 ML BOTTLE OP SCH ×3 (08:00→20:43)
[2021-06-19] MEDS: FAMOTIDINE 20MG VIAL IV SCH (08:08)
[2021-06-19] MEDS: DOXYCYCLINE HYCLATE 100 MG TABLET PO SCH ×2 (08:08→20:48)
[2021-06-19] MEDS: METRONIDAZOLE 500 MG TABLET PO SCH ×2 (08:08→18:14)
[2021-06-19] MEDS: GABAPENTIN 300 MG CAPSULE PO SCH ×2 (08:08→20:48)
[2021-06-19] MEDS: CLOPIDOGREL 75MG TAB PO SCH (08:08)
[2021-06-19] MEDS: LISINOPRIL 20 MG TABLET PO SCH (08:08)
[2021-06-19] MEDS: AMLODIPINE 5 MG TAB PO SCH (08:08)
[2021-06-19] MEDS: POLYETHYLENE GLYCOL 3350 17 GM POWD.PACK PO SCH (08:08)
[2021-06-19] MEDS: ENOXAPARIN SODIUM 30 MG/0.3 ML SQ SCH (08:12)
[2021-06-19 12:00] VITALS: BP 116/74
[2021-06-19 16:00] VITALS: BP 122/80
[2021-06-19 20:12] VITALS: BP 126/83
[2021-06-19] MEDS: LATANOPROST 2.5 ML DROPS OP SCH (20:42)
[2021-06-19] MEDS: ATORVASTATIN 20 MG TABLET PO SCH (20:48)
[2021-06-19] MEDS: LACTULOSE 20 GM/30 ML UDCUP PO PRN (20:52)
[2021-06-20] VITALS: BP 127/71
[2021-06-20] MEDS: METRONIDAZOLE 500 MG TABLET PO SCH ×3 (00:42→17:55)
[2021-06-20 04:00] VITALS: BP 136/78
[2021-06-20] MEDS: INSULIN HUMULIN R 100 UNIT/ML 3ML SQ SCH ×3 (06:38→16:30)
[2021-06-20 08:00] VITALS: BP 156/94
[2021-06-20] MEDS ORDERED: MAGNESIUM CITRATE 296 ML SOLUTION PO SCH (08:30)
[2021-06-20] MEDS: [UNRECOGNIZED DRUG - OTHER] OP SCH ×2 (09:00→14:00)
[2021-06-20] MEDS: **HM** JARDIANCE 10MG PO SCH (09:00)
[2021-06-20] MEDS: DORZOLAMIDE HCL/TIMOLOL MALEAT DROPS 10 ML BOTTLE OP SCH ×2 (09:00→14:00)
[2021-06-20] MEDS: DOXYCYCLINE HYCLATE 100 MG TABLET PO SCH (10:02)
[2021-06-20] MEDS: CLOPIDOGREL 75MG TAB PO SCH (10:02)
[2021-06-20] MEDS: GABAPENTIN 300 MG CAPSULE PO SCH (10:03)
[2021-06-20] MEDS: AMLODIPINE 5 MG TAB PO SCH (10:03)
[2021-06-20] MEDS: FAMOTIDINE 20MG VIAL IV SCH (10:03)
[2021-06-20] MEDS: LISINOPRIL 20 MG TABLET PO SCH (10:03)
[2021-06-20] MEDS: ENOXAPARIN SODIUM 30 MG/0.3 ML SQ SCH (10:04)
[2021-06-20 12:00] VITALS: BP 151/93
[2021-06-20 16:00] VITALS: BP 116/73
== END 2021-06-20 19:10 | DRG 240 ==
LOC: EDH 11:59 → EDHIP 13:28 → 3AH 20:18
PROVIDERS: ADMIT Internal Medicine; ATTEND Internal Medicine
PROC: 0SBP0ZZ Excision of Right Toe Phalangeal Joint, Open Approach (ICD-10-PCS; 2021-06-09)
PROC: 0Y6M0ZB Detachment at Right Foot, Partial 2nd Ray, Open Approach (ICD-10-PCS; principal; 2021-06-13 14:10)
DX: E11.52 Type 2 diabetes mellitus with diabetic peripheral angiopathy with gangrene (principal); M86.171 Other acute osteomyelitis, right ankle and foot; L03.031 Cellulitis of right toe; I12.9 Hypertensive chronic kidney disease with stage 1 through stage 4 chronic kidney disease, or unspecified chronic kidney disease; N18.30 Chronic kidney disease, stage 3 unspecified; E78.5 Hyperlipidemia, unspecified; E11.22 Type 2 diabetes mellitus with diabetic chronic kidney disease; E11.621 Type 2 diabetes mellitus with foot ulcer; E11.69 Type 2 diabetes mellitus with other specified complication; Z20.822 Contact with and (suspected) exposure to COVID-19; E11.42 Type 2 diabetes mellitus with diabetic polyneuropathy; L97.519 Non-pressure chronic ulcer of other part of right foot with unspecified severity; Z04.9 Encounter for examination and observation for unspecified reason; J44.9 Chronic obstructive pulmonary disease, unspecified; N28.9 Disorder of kidney and ureter, unspecified; K59.00 Constipation, unspecified; Z79.84 Long term (current) use of oral hypoglycemic drugs; Z79.899 Other long term (current) drug therapy; Z90.49 Acquired absence of other specified parts of digestive tract; Z83.3 Family history of diabetes mellitus
CPT/HCPCS: 36415; 71045; 71250; 73630; 73718; 73721; 75635; 80048; 80053; 80061; 80202; 81003; 82948; 83036; 83605; 84145; 84484; 85025; 85027; 85610; 85651; 85730; 86140; 87040; 87070; 87076; 87635; 88305; 88307; 88311; 93005; 93925; 97039; C9803; G0378; J0692; J1100; J1650; J1815; J2001; J2175; J2250; J2405; J2543; J2704; J3010; J3370; J3490; J7030; J7050; Q9967

== ENCOUNTER 2021-09-28 15:23 | Emergency (ER) | payer MEDICARE, OTHER ==
[~2021-09-28] VITALS: Ht 170.2 cm; Wt 77.1 kg
[~2021-09-28 15:23] MED LIST changes: +ATOR10 PO; +CLOP75TA14 PO; +DORZ10DR10 OP; +DULA0.75 SQ; +EMPA10TA PO; +LATA7.5D OP; +LISI20TA24 PO; +[UNRECOGNIZED DRUG - OTHER] OP
[2021-09-28 15:30] VITALS: BP 150/72
[2021-09-28] MEDS ORDERED: LACTULOSE 20 GM/30 ML UDCUP PO ONE (16:00)
[2021-09-28] MEDS ORDERED: MAGNESIUM CITRATE 296 ML SOLUTION PO ONE (16:00)
[2021-09-28] MEDS ORDERED: POLY17PO4 PO (16:31)
[2021-09-28] MEDS ORDERED: LACT10PA5 PO (16:31)
[2021-09-28] MEDS ORDERED: GLYC-30 RC (16:31)
== END 2021-09-28 16:43 | disposition home or self-care (01) ==
LOC: EDH 15:23
DX: K59.00 Constipation, unspecified (principal); I10 Essential (primary) hypertension; E11.9 Type 2 diabetes mellitus without complications; Z90.49 Acquired absence of other specified parts of digestive tract; Z79.899 Other long term (current) drug therapy
CPT/HCPCS: 74018

== ENCOUNTER 2021-10-15 23:00 | Emergency (ER) | payer OTHER ==
[~2021-10-15] VITALS: Ht 170.2 cm; Wt 77.1 kg
[~2021-10-15 23:00] MED LIST changes: +GLYC-30 RC; +POLY17PO4 PO
[2021-10-15 23:51] LABS: BASOPHILS % (AUTO) 0.6 % (0.0-5.0); EOSINOPHILS % (AUTO) 1.2 % (0.0-8.0); HEMATOCRIT 46.7 % (42-54); LYMPHOCYTES % (AUTO) 22.8 % (21.0-51.0); MEAN CORPUSCULAR HEMOGLOBIN 31.6 pg (27.0-33.0); MEAN CORPUSCULAR HGB CONC 35.1 g/dL (32.0-36.0); MONOCYTES % (AUTO) 7.9 % (3.0-13.0); NEUTROPHILS % (AUTO) 67.1 % (40.0-77.0); PLATELET COUNT (AUTO) 165 K/uL (130-400); RED BLOOD CELL COUNT(AUTO) 5.19 MIL/uL (4.50-6.20); RED CELL DISTRIBUTION WIDTH 12.8 % (11.0-15.5); WHITE BLOOD COUNT (AUTO) 8.3 K/uL (4.8-10.8)
[2021-10-16 00:04] LABS: CREATININE 1.2 mg/dL (0.5-1.5); POTASSIUM 3.9 mmol/L (3.5-5.1)
[2021-10-16 00:11] LABS: ALBUMIN 3.9 g/dL (3.5-5.0); BILIRUBIN,TOTAL 0.6 mg/dL (0.2-1.0); TOTAL PROTEIN, SERUM 7.2 g/dL (6.0-8.3)
[2021-10-16 02:06] LABS: APPEARANCE,URINE CLEAR (CLEAR); BILIRUBIN,URINE NEGATIVE (NEGATIVE); COLOR,URINE YELLOW (YELLOW); GLUCOSE, URINE (UA) >=1000 mg/dL (NEGATIVE); KETONES,URINE 5 mg/dL (NEGATIVE); LEUKOCYTE ESTERASE ,URINE NEGATIVE (NEGATIVE); NITRATE,URINE NEGATIVE (NEGATIVE); OCCULT BLOOD,URINE TRACE-INTACT (NEGATIVE); PROTEIN,URINE TRACE mg/dL (NEGATIVE); UROBILINOGEN,URINE 0.2 mg/dL (0.2-1.0)
[2021-10-16 02:13] LABS: RBC,URINE 0-1 /HPF (0-1); WBC,URINE 0-1 /HPF (0-1)
[2021-10-16 02:14] LABS: BACTERIA,URINE Few /HPF (None Seen); SQUAMOUS EPITHELIAL CELL,UR 0-2 /HPF (0-2)
[2021-10-16] MEDS ORDERED: POLY17PO4 PO (02:40)
[2021-10-16 05:20] VITALS: BP 142/75
== END 2021-10-16 03:40 | disposition home or self-care (01) ==
LOC: EDH 23:00
DX: K59.00 Constipation, unspecified (principal); R33.9 Retention of urine, unspecified; E11.9 Type 2 diabetes mellitus without complications; I10 Essential (primary) hypertension; Z79.899 Other long term (current) drug therapy; Z90.49 Acquired absence of other specified parts of digestive tract
CPT/HCPCS: 36415; 51702; 74018; 74176; 80053; 81001; 85025